=== PATIENT | female | born 1945 | race Caucasian/White ===

== ENCOUNTER → 2016-12-23 | Outpatient (CLI) | payer MEDICARE | END | disposition short-term general hospital (02) | LOC: CLONCO 08:05 | DX: D47.3 Essential (hemorrhagic) thrombocythemia (principal); R10.9 Unspecified abdominal pain ==

== ENCOUNTER → 2017-06-23 | Outpatient (CLI) | payer MEDICARE | END | disposition short-term general hospital (02) | LOC: CLONCO 09:43 | DX: D47.3 Essential (hemorrhagic) thrombocythemia (principal); D45 Polycythemia vera ==